=== PATIENT | male | born 1940 | race Caucasian/White ===

== ENCOUNTER 2023-07-10 07:19 | Outpatient (CLI) | payer MEDICARE, MEDICAID ==
[2023-07-10 07:58] LABS: BASOPHILS % (AUTO) 0.6 % (0-1); EOSINOPHILS # (AUTO) 0.1 X10'3 (0-0.9); EOSINOPHILS % (AUTO) 1.7 % (0-6); HEMATOCRIT 44.3 % (42.0-52.0); HEMOGLOBIN 14.8 g/dl (14.0-17.9); LYMPHOCYTES # (AUTO) 2.7 X10'3 (1.1-4.8); LYMPHOCYTES % (AUTO) 33.7 % (21-51); MEAN CORPUSCULAR HEMOGLOBIN 31.7 PG (27.0-31.0); MEAN CORPUSCULAR HGB CONC 33.3 g/dL (33.0-36.5); MEAN CORPUSCULAR VOLUME 94.9 FL (78-98); MEAN PLATELET VOLUME 8.4 FL (7.4-10.4); MONOCYTES # (AUTO) 0.7 X10'3 (0-0.9); MONOCYTES % (AUTO) 8.4 % (2-12); NEUTROPHILS # (AUTO) 4.5 X10'3 (1.8-7.7); NEUTROPHILS % (AUTO) 55.6 % (42-75); PLATELET COUNT 217 X10'3 (140-440); RED BLOOD COUNT 4.67 X10'6 (4.70-6.10); RED CELL DISTRIBUTION WIDTH 13.6 % (11.5-14.5); WHITE BLOOD COUNT 8.2 X10'3 (4.5-11.0)
[2023-07-10 08:04] LABS: APTT 26 SECONDS (22-32); PROTHROMBIN TIME 10.6 SECONDS (9.0-12.0)
[2023-07-10 08:07] LABS: ALANINE AMINOTRANSFERASE 38 U/L (12-78); ALBUMIN 3.8 G/DL (3.4-5.0); ALBUMIN/GLOBULIN RATIO 1.2 (1.1-1.5); ALKALINE PHOSPHATASE 133 IU/L (46-116); ANION GAP 7 (8-16); ASPARTATE AMINO TRANSFERASE 22 U/L (10-37); BILIRUBIN,TOTAL 0.7 MG/DL (0.1-1.0); BLOOD UREA NITROGEN 19 MG/DL (7-18); BUN/CREATININE RATIO 17.6 (10.0-20.0); CALCIUM 9.3 MG/DL (8.5-10.1); CHLORIDE 105 MMOL/L (99-107); CREATININE 1.08 MG/DL (0.60-1.10); GLUCOSE 104 MG/DL (70-104); POTASSIUM 4.1 MMOL/L (3.5-5.1); SODIUM 141 MMOL/L (135-145); TOTAL CARBON DIOXIDE 29.1 MMOL/L (24-32); TOTAL PROTEIN 7.1 G/DL (6.4-8.2); eGFR 65 ML/MIN
[2023-07-10] MEDS ORDERED: iohexol 350MG/ML 100ml bottle IV ONE (08:14)
== END 2023-07-10 23:59 | disposition home or self-care (01) ==
LOC: 64 CT 07:19
PROVIDERS: ATTEND Student in an Organized Health Care Education/Training Program
DX: J98.6 Disorders of diaphragm (principal); I48.91 Unspecified atrial fibrillation; I48.92 Unspecified atrial flutter; I51.7 Cardiomegaly; I25.10 Atherosclerotic heart disease of native coronary artery without angina pectoris
CPT/HCPCS: 36415; 75572; 80053; 85025; 85610; 85730; J3490; Q9967

== ENCOUNTER 2023-07-21 07:16 | Inpatient (IN) | payer MEDICARE, MEDICAID ==
[2023-07-21] VITALS (22 sets, daily range): BP systolic 107–144; BP diastolic 64–84; PULSE 54–95; RESP 13–20; TEMP 97–97.6; O2SAT 92–100
[~2023-07-21] VITALS: Ht 180.3 cm; Wt 86.8 kg
[~2023-07-21 07:16] MED LIST: APIX5TAB3 PO; ATOR40TA PO; CYAN3000 SL; DICL20GE TOP; DILT240C90 PO; DONE10TA19 PO; HYDR-3973 PO; LEVE750T66 PO; LIDO1ADH67 TOP; LISI40TA13 PO; METH-798 PO; cefazolin 2gm/D5W 100mL 100 ML IV ONE; famotidine 20mg tablet PO ONE; ondansetron/PF 4mg/2ml inj IV PRN; ringers solution, lacted 1,000 ML IV SCH; vancomycin 1,500 MG in NS 300ml IV soln IV ONE
--- NOTE | 2023-07-21 09:00 | NUR ---
PLEASANT PT, ATTENTIVE-CAREGIVER, AT BEDSIDE, NURSING AWARE OF PT DEMENTIA AND CAN BE EASILY CONFUSED. PLAN TO HAVE SITTER OR STAY OVER NIGHT FOR PT SAFETY
[2023-07-21] MEDS ORDERED: hydrALAZINE 20mg/ml inj. IV PRN ×2 (09:05→12:30)
[2023-07-21] MEDS ORDERED: ringers solution, lacted 1,000 ML IV SCH (09:05)
[2023-07-21] MEDS ORDERED: ondansetron/PF 4mg/2ml inj IV PRN ×2 (09:05→12:30)
[2023-07-21] MEDS ORDERED: proCHLORperazine 10 MG/2 ml inj IV PRN ×2 (09:05→12:30)
[2023-07-21] MEDS ORDERED: labetalol 20mg/4ml (5mg/ml) syringe IV PRN ×2 (09:05→12:30)
[2023-07-21] MEDS ORDERED: morphine 4 MG/ML inj SYRINge IV PRN (09:05)
[2023-07-21] MEDS ORDERED: acetaminophen 1,000mg/100ml IV 100 ML IV PRN (09:05)
[2023-07-21] MEDS ORDERED: morphine 2 MG/ML inj. syringe IV PRN (09:05)
[2023-07-21] MEDS ORDERED: meperidine/PF 25mg/ml syringe IV PRN ×3 (09:05)
[2023-07-21] MEDS ORDERED: LIDOcaine 1% (10mg/ml) 2ml vial ONE (10:52)
[2023-07-21] MEDS ORDERED: iohexol 350 MG/ML 50ML vial IV ONE (11:00)
[2023-07-21] MEDS ORDERED: iohexol 350MG/ML 100ml bottle IV ONE (11:06)
[2023-07-21] MEDS ORDERED: sevoflurane 250ml liquid IH ONE (11:18)
[2023-07-21] MEDS ORDERED: fentaNYL/PF 50MCG/1 ML 2ML syringe ONE (11:20)
[2023-07-21] MEDS ORDERED: midazolam 1 mg/ML 2ml injection ONE (11:20)
[2023-07-21] MEDS ORDERED: propofol inj 20 ML IV ONE (11:35)
[2023-07-21] MEDS ORDERED: LIDOcaine 5% patch TP PRN (11:35)
[2023-07-21] MEDS ORDERED: DICLOFENAC SODIUM 1% gel 1 APPLIC APPLIC TP PRN (11:35)
[2023-07-21] MEDS ORDERED: cyclobenzaprine 10mg tablet PO PRN (11:35)
[2023-07-21] MEDS ORDERED: dexamethasone sod phosphate 4mg/ml inj. ONE (11:36)
[2023-07-21] MEDS ORDERED: LIDOcaine 1%/PF 5ML 10 MG/ML VIAL ONE ×2 (11:36)
[2023-07-21] MEDS ORDERED: ondansetron/PF 4mg/2ml inj ONE (11:36)
[2023-07-21] MEDS ORDERED: heparin 1,000unit/ml 10ml vial 0 ML ONE (11:37)
[2023-07-21] MEDS ORDERED: heparin 1,000unit/ml 10ml vial 10 ML ONE (11:45)
[2023-07-21] MEDS ORDERED: ePHEDrine 50MG/ML INJ. ONE (12:12)
[2023-07-21] MEDS ORDERED: 0.9 % SODIUM CHLORIDE 10 ML VIAL ONE (12:22)
[2023-07-21] MEDS ORDERED: magnesium 2GM in 50ml NS 50 ML IV PRN (12:30)
[2023-07-21] MEDS ORDERED: diphenhydrAMINE 25mg capsule PO PRN (12:30)
[2023-07-21] MEDS ORDERED: ALPRAZolam 0.25mg tablet PO PRN (12:30)
[2023-07-21] MEDS ORDERED: acetaminophen 325mg tablet PO PRN (12:30)
[2023-07-21] MEDS ORDERED: pantoprazole 40mg Tablet.DR PO PRN (12:30)
[2023-07-21] MEDS ORDERED: potassium Cl 40MEQ/1/2NS 520ml 520 ML IV PRN (12:30)
[2023-07-21] MEDS ORDERED: magnesium 4gm in 100ml NS 100 ML IV PRN (12:30)
[2023-07-21] MEDS ORDERED: docusate sod 100mg capsule PO PRN (12:30)
[2023-07-21] MEDS ORDERED: potassium Cl 20 mEq SR tablet PO PRN (12:30)
[2023-07-21] MEDS ORDERED: potassium Cl 20mEq/100mL bag 100 ML IV PRN (12:30)
[2023-07-21] MEDS ORDERED: potassium CL 10mEq/100ml bag 100 ML IV PRN (12:30)
[2023-07-21] MEDS: normal saline 1000ml 1,000 ML IV SCH ×2 (12:30→22:30)
[2023-07-21] MEDS ORDERED: potassium Cl 40MEQ/270ML bag 250 ML IV PRN (12:30)
--- NOTE | 2023-07-21 12:36 | NUR ---
Received from OR via BED IN STABLE CONDITION , accompanied by ON SITE SERVICES SPECIALIST AND Anesthesiologist report given by ON SITE SERVICES SPECIALIST AND Anesthesiolgist. Addendum: 07/21/23 at 1349 by Charlotte Rea RN Amended: Links added.
--- NOTE | 2023-07-21 14:37 | NUR ---
MARCE AND FIGURE OF EIGHT REMOVED. Addendum: 07/21/23 at 1438 by Charlotte Rea RN Amended: Links added.
--- NOTE | 2023-07-21 14:56 | NUR ---
PATIENT DISCHARGED FROM PACU IN STABLE CONDITION AFTER REPORT GIVEN TO RN TAKING OVER PATIENTS CARE. PATIENT TRANSFERRED TO ROOM 3019 VIA BED WITH RN X2. Addendum: 07/21/23 at 1526 by Charlotte Rea RN Amended: Links added.
[2023-07-21] MEDS: cyanocobalamin 500mcg tablet PO SCH (15:58)
[2023-07-21] MEDS: sod chloride 0.9% 10ml flush syringe IV SCH (16:00)
[2023-07-21] MEDS: HYDROcodone/acetaminophen 10/325mg tab PO SCH ×2 (16:00→20:56)
--- NOTE | 2023-07-21 18:38 | NUR ---
Problems reprioritized. Patient report given, questions answered & plan of care reviewed with BRIELLE SANFORD.
[2023-07-21] MEDS: LEVETIRACETAM 750 MG PO SCH (20:00)
[2023-07-21] MEDS: apixaban 5mg tablet PO SCH (20:49)
[2023-07-21] MEDS ORDERED: donepezil 5mg tablet PO SCH (21:00)
[2023-07-22] VITALS (11 sets, daily range): BP systolic 118–148; BP diastolic 65–97; PULSE 72–99; RESP 19–22; TEMP 97.9–98.2; O2SAT 94–98
[2023-07-22] MEDS: normal saline 1000ml 1,000 ML IV SCH (00:25)
[2023-07-22] MEDS: sod chloride 0.9% 10ml flush syringe IV SCH ×3 (00:25→16:15)
--- NOTE | 2023-07-22 02:00 | NUR ---
pt requested not to be disturbed.Said that he wish to sleep.
--- NOTE | 2023-07-22 06:18 | NUR ---
Patient in room PCU 3019. I have received report from BRIELLE SANFORD, and had the opportunity to ask questions and assume patient care.
--- NOTE | 2023-07-22 06:24 | NUR ---
Report given to Gloria
[2023-07-22 07:48] LABS: BASOPHILS % (AUTO) 0.1 % (0-1); EOSINOPHILS % (AUTO) 0 % (0-6); HEMOGLOBIN 13.7 g/dl (14.0-17.9); LYMPHOCYTES # (AUTO) 1.1 X10'3 (1.1-4.8); LYMPHOCYTES % (AUTO) 8.5 % (21-51); MEAN CORPUSCULAR HEMOGLOBIN 31.6 PG (27.0-31.0); MEAN CORPUSCULAR HGB CONC 33.4 g/dL (33.0-36.5); MEAN CORPUSCULAR VOLUME 94.5 FL (78-98); MEAN PLATELET VOLUME 8.7 FL (7.4-10.4); MONOCYTES # (AUTO) 0.4 X10'3 (0-0.9); MONOCYTES % (AUTO) 3.4 % (2-12); NEUTROPHILS # (AUTO) 10.9 X10'3 (1.8-7.7); PLATELET COUNT 201 X10'3 (140-440); RED BLOOD COUNT 4.33 X10'6 (4.70-6.10); RED CELL DISTRIBUTION WIDTH 13.3 % (11.5-14.5); WHITE BLOOD COUNT 12.3 X10'3 (4.5-11.0)
[2023-07-22 07:56] LABS: PROTHROMBIN TIME 11.1 SECONDS (9.0-12.0)
[2023-07-22] MEDS ORDERED: lisinopril 10 MG tablet PO SCH (08:00)
[2023-07-22] MEDS ORDERED: diltiazem CD 120mg capsule (once-daily) PO SCH (08:00)
[2023-07-22] MEDS ORDERED: atorvastatin 20mg tablet PO SCH (08:00)
[2023-07-22] MEDS: LEVETIRACETAM 750 MG PO SCH (08:00)
[2023-07-22] MEDS: cyanocobalamin 500mcg tablet PO SCH (08:14)
[2023-07-22] MEDS: apixaban 5mg tablet PO SCH (08:14)
[2023-07-22] MEDS: HYDROcodone/acetaminophen 10/325mg tab PO SCH ×2 (08:15→16:14)
--- NOTE | 2023-07-22 08:16 | NUR ---
pt's showed this nurse documentation that pt was instructed not to bring any medications from home.
[2023-07-22 08:21] LABS: ALANINE AMINOTRANSFERASE 34 U/L (12-78); ALBUMIN 3.7 G/DL (3.4-5.0); ALBUMIN/GLOBULIN RATIO 1.2 (1.1-1.5); ALKALINE PHOSPHATASE 123 IU/L (46-116); ANION GAP 10 (8-16); ASPARTATE AMINO TRANSFERASE 37 U/L (10-37); BILIRUBIN,TOTAL 0.5 MG/DL (0.1-1.0); BLOOD UREA NITROGEN 22 MG/DL (7-18); BUN/CREATININE RATIO 24.2 (10.0-20.0); CALCIUM 9.1 MG/DL (8.5-10.1); CHLORIDE 104 MMOL/L (99-107); CREATININE 0.91 MG/DL (0.60-1.10); GLUCOSE 140 MG/DL (70-104); MAGNESIUM 2.3 MG/DL (1.5-2.4); POTASSIUM 4.2 MMOL/L (3.5-5.1); PRO BRAIN NATRIURETIC PEPTIDE 1525 PG/ML (0-450); SODIUM 140 MMOL/L (135-145); TOTAL CARBON DIOXIDE 25.9 MMOL/L (24-32); TOTAL PROTEIN 6.9 G/DL (6.4-8.2); eCRCL 66 ML/MIN; eGFR 80 ML/MIN
--- NOTE | 2023-07-22 14:50 | NUR ---
ATTEMPTED TO AMBULATE PT. PT'S HR WENT INTO THE 150's 10 FEET OUT OF THE PT'S ROOM. PT ASSISTED TO TOILET. PT ADVISED NOT TO STRAIN.
--- NOTE | 2023-07-22 17:24 | NUR ---
PT STABLE FOR DISCHARGE PER MD. DISCHARGE AND FOLLOW UP INSTRUCTIONS REVIEWED WITH PT AND HIS . BELONGINGS GATHERED AND SENT WITH PT. WATCHMAN PLACARD SENT WITH PT. PIV REMOVED. TELE BOX REMOVED. PT TRANSPORTED TO PRIVATE VEHICLE BY HOSPITAL STAFF. PT DISCHARGED TO HOME.
== END 2023-07-22 17:15 | disposition home or self-care (01) | DRG 274 ==
LOC: PAS IN 07:16 → EDSTATUS 12:00 → PCU 3S 15:05
PROVIDERS: ADMIT Student in an Organized Health Care Education/Training Program; ATTEND Student in an Organized Health Care Education/Training Program
PROC: 03HY32Z Insertion of Monitoring Device into Upper Artery, Percutaneous Approach (ICD-10-PCS; 2023-07-21)
PROC: B24BZZ4 Ultrasonography of Heart with Aorta, Transesophageal (ICD-10-PCS; 2023-07-21)
PROC: 02L73DK Occlusion of Left Atrial Appendage with Intraluminal Device, Percutaneous Approach (ICD-10-PCS; principal; 2023-07-21 11:18)
DX: I48.20 Chronic atrial fibrillation, unspecified (principal); E78.5 Hyperlipidemia, unspecified; F03.90 Unspecified dementia, unspecified severity, without behavioral disturbance, psychotic disturbance, mood disturbance, and anxiety; I10 Essential (primary) hypertension; I25.10 Atherosclerotic heart disease of native coronary artery without angina pectoris; R29.6 Repeated falls; Z91.81 History of falling
CPT/HCPCS: 33340; 36415; 71045; 71046; 76376; 76937; 80053; 82948; 83735; 83880; 85025; 85347; 85610; 86885; 86900; 86901; 86920; 87081; 93005; 93308; 93312; A4615; A4618; A6258; A6449; C1760; C1889; C1893; C1894; G0378; J0690; J1100; J1644; J2250; J2405; J2704; J3010; J3370; J3490; J7030; J7040; J7120; Q9967

== ENCOUNTER 2023-09-08 11:34 | Day surgery (SDC) | payer MEDICARE, MEDICAID ==
[~2023-09-08] VITALS: Ht 180.3 cm; Wt 83.9 kg
[2023-09-08] VITALS (12 sets, daily range): BP systolic 100–129; BP diastolic 65–96; PULSE 52–88; RESP 14–16; TEMP 98.2; O2SAT 94–99
[~2023-09-08 11:34] MED LIST changes: -cefazolin 2gm/D5W 100mL 100 ML IV ONE; -famotidine 20mg tablet PO ONE; -ondansetron/PF 4mg/2ml inj IV PRN; -ringers solution, lacted 1,000 ML IV SCH; -vancomycin 1,500 MG in NS 300ml IV soln IV ONE
[2023-09-08] MEDS ORDERED: fentaNYL/PF 50MCG/1 ML 2ML syringe IV ONE (11:55)
[2023-09-08] MEDS ORDERED: MIDAZolam 1mg/ml 10ml vial IV ONE (11:55)
[2023-09-08] MEDS ORDERED: LISI20TA28 PO (12:05)
[2023-09-08 12:29] LABS: BASOPHILS % (AUTO) 0.6 % (0-1); EOSINOPHILS # (AUTO) 0.2 X10'3 (0-0.9); EOSINOPHILS % (AUTO) 2.8 % (0-6); HEMATOCRIT 43.2 % (42.0-52.0); HEMOGLOBIN 14.6 g/dl (14.0-17.9); LYMPHOCYTES # (AUTO) 2.3 X10'3 (1.1-4.8); LYMPHOCYTES % (AUTO) 29.5 % (21-51); MEAN CORPUSCULAR HEMOGLOBIN 31.8 PG (27.0-31.0); MEAN CORPUSCULAR HGB CONC 33.8 g/dL (33.0-36.5); MONOCYTES # (AUTO) 0.6 X10'3 (0-0.9); MONOCYTES % (AUTO) 8.2 % (2-12); NEUTROPHILS # (AUTO) 4.6 X10'3 (1.8-7.7); NEUTROPHILS % (AUTO) 58.9 % (42-75); PLATELET COUNT 209 X10'3 (140-440); RED CELL DISTRIBUTION WIDTH 13.2 % (11.5-14.5); WHITE BLOOD COUNT 7.7 X10'3 (4.5-11.0)
[2023-09-08 12:41] LABS: ALBUMIN 3.7 G/DL (3.4-5.0); ANION GAP 7 (8-16); BLOOD UREA NITROGEN 20 MG/DL (7-18); BUN/CREATININE RATIO 21.1 (10.0-20.0); CALCIUM 9.1 MG/DL (8.5-10.1); CHLORIDE 103 MMOL/L (99-107); CREATININE 0.95 MG/DL (0.60-1.10); GLUCOSE 95 MG/DL (70-104); POTASSIUM 3.9 MMOL/L (3.5-5.1); PROTHROMBIN TIME 10.7 SECONDS (9.0-12.0); SODIUM 140 MMOL/L (135-145); TOTAL CARBON DIOXIDE 30.3 MMOL/L (24-32); eCRCL 63 ML/MIN; eGFR 76 ML/MIN
== END 2023-09-08 15:00 | disposition home or self-care (01) ==
LOC: SSTAY O 11:34
PROVIDERS: ATTEND Student in an Organized Health Care Education/Training Program
DX: Z45.09 Encounter for adjustment and management of other cardiac device (principal); I48.0 Paroxysmal atrial fibrillation; I10 Essential (primary) hypertension; E78.5 Hyperlipidemia, unspecified; F02.80 Dementia in other diseases classified elsewhere, unspecified severity, without behavioral disturbance, psychotic disturbance, mood disturbance, and anxiety; M19.90 Unspecified osteoarthritis, unspecified site; M21.379 Foot drop, unspecified foot; Z79.899 Other long term (current) drug therapy; Z98.890 Other specified postprocedural states; Z82.49 Family history of ischemic heart disease and other diseases of the circulatory system
CPT/HCPCS: 36415; 80048; 85025; 85610; 93312; 93325; J2250; J7030; A4620